=== PATIENT | female | born 1970 | race Caucasian/White ===

== ENCOUNTER 2017-11-03 14:21 | Emergency (ER) | payer OTHER ==
[~2017-11-03] VITALS: Ht 157.5 cm; Wt 69.3 kg
[2017-11-03 15:22] LABS: BASOPHILS # (AUTO) 0.03 x10^3/uL (0-0.1); BASOPHILS % (AUTO) 0 % (0-1); EOSINOPHILS % (AUTO) 2 % (1-7); HCT (SEDRATE) 43.7 % (34.6-47.8); LYMPHOCYTES # (AUTO) 2.29 x10^3/uL (1-3.4); LYMPHOCYTES % (AUTO) 28 % (22-44); MD NO; MEAN CORPUSCULAR HEMOGLOBIN 27.8 pg (27.0-34.8); MEAN CORPUSCULAR HGB CONC 33.4 g/dL (32.4-35.8); MEAN CORPUSCULAR VOLUME 83.1 fL (80-100); MEAN PLATELET VOLUME 8.3 fL (7.4-10.4); MONOCYTES # (AUTO) 0.83 x10^3/uL (0.2-0.8); MONOCYTES % (AUTO) 10 % (2-9); NEUTROPHILS # (AUTO) 4.98 x10^3/uL (1.8-6.8); NEUTROPHILS % (AUTO) 60 % (42-75); PLATELET COUNT 341 x10^3/uL (130-400); RED BLOOD COUNT 5.27 x10^6/uL (3.82-5.3); RED CELL DISTRIBUTION WIDTH 13.9 % (9.6-15.2)
[2017-11-03 15:35] LABS: ALBUMIN 3.8 g/dL (3.4-5.0); ANION GAP 11 mmol/L (5-15); CALCIUM 8.9 mg/dL (8.5-10.1); CHLORIDE 111 mmol/L (98-107)
[2017-11-03 15:38] LABS: MICROSCOPIC NOT IND
[2017-11-03 15:41] LABS: CULTURE INDICATED? NO
[2017-11-03 15:46] LABS: ALANINE AMINOTRANSFERASE 23 U/L (12-78); ALKALINE PHOSPHATASE 79 U/L (45-117); BILIRUBIN,TOTAL 0.4 mg/dL (0.2-1.0); CREATININE 0.92 mg/dL (0.55-1.02); FREE T4 (FREE THYROXINE) 1.61 ng/dL (0.76-1.46); HIGH-SENSITIVITY CRP 0.47 mg/dL (0.02-0.30); TOTAL PROTEIN 7.3 g/dL (6.4-8.2)
[2017-11-03 15:48] LABS: THYROID STIMULATING HORMONE < 0.005 mIU/L (0.358-3.740)
[2017-11-03 16:00] VITALS: BP 120/70
[2017-11-03 16:00] LABS: SEDIMENTATION RATE 12 mm/hr (0-20)
== END 2017-11-03 17:15 | disposition home or self-care (01) ==
LOC: ED 17:09
DX: M79.1 Myalgia (principal); I10 Essential (primary) hypertension; F17.210 Nicotine dependence, cigarettes, uncomplicated; Z90.710 Acquired absence of both cervix and uterus
CPT/HCPCS: 36415; 80053; 81003; 84439; 84443; 85025; 85651; 86141; 99284

== ENCOUNTER 2019-10-18 20:51 | Emergency (ER) | payer OTHER ==
[~2019-10-18] VITALS: Ht 157.5 cm; Wt 51.6 kg
--- NOTE | 2019-10-18 21:23 | NUR ---
THIS IS A 49 YO FEMALE COMING IN FOR "I KNOW I'M GONNA DETOX AND I DON'T WANT TO. THE POLICE SAID TO GO TO THE PLACE BY THE BUS STATION OR COME HERE". PATIENT STATES SHE DRANK APPROX 2 PINTS 4 HOURS AGO, REGULARLY DRINKS 3-4 PINTS A DAY FOR THE PAST 4 MONTHS. HAS GONE TO DETOX FACILITIES IN PAST, LAST TIME WAS 4 YEARS AGO IN [place], STATES SHE WAS SOBER FOR 3 YEARS, THEN STARTED FEELING DEPRESSED 4 MONTHS AGO AND STARTED DRINKING. DENIES SI/HI, "JUST FEELING A LITTLE DEPRESSED". PATIENT ALSO C/O RUQ PAIN RATED 4/10, TENDER TO PALPATION, NO RADIATION. PATIENT IS TEARY, AND WRINGING HANDS. NO TREMORS NOTED, NSR AT 70 BPM ON [employer]. VSS. CALL LIGHT IN REACH, IN ROOM
[2019-10-18 21:37] LABS: MEAN CORPUSCULAR HEMOGLOBIN 29.5 pg (27.0-34.8); MEAN CORPUSCULAR HGB CONC 33.1 g/dL (32.4-35.8); MEAN CORPUSCULAR VOLUME 89.2 fL (80-100); MEAN PLATELET VOLUME 7.1 fL (7.4-10.4); PLATELET COUNT 347 x10^3/uL (130-400); RED BLOOD COUNT 5.62 x10^6/uL (3.82-5.3); RED CELL DISTRIBUTION WIDTH 15.4 % (9.6-15.2)
[2019-10-18 21:49] LABS: ALANINE AMINOTRANSFERASE 19 U/L (12-78); ALBUMIN 4.3 g/dL (3.4-5.0); ANION GAP 6 mmol/L (5-15); CALCIUM 8.5 mg/dL (8.5-10.1); CHLORIDE 113 mmol/L (98-107); CREATININE 0.83 mg/dL (0.55-1.02)
[2019-10-18 21:52] LABS: ALKALINE PHOSPHATASE 71 U/L (45-117); BILIRUBIN,TOTAL 0.4 mg/dL (0.2-1.0); TOTAL PROTEIN 7.7 g/dL (6.4-8.2)
--- NOTE | 2019-10-18 21:58 | NUR ---
PATIENT AMBULATORY WITH STEADY GAIT TO RESTROOM
[2019-10-18] MEDS ORDERED: LORazepam 1MG TABLET ONE (22:03)
--- NOTE | 2019-10-18 22:10 | NUR ---
THIS RN TO ROOM TO GIVE MEDICATION PER EMAR AND PATIENT REQUEST, PATIENT STATES "I CAN'T TAKE ATIVAN, IT MADE ME CRAZY YEARS AGO". PATIENT RAISED VOICE AND YELLED "I NEED TO GET OUT OF HERE. I NEED TO DRINK. I NEED TO LEAVE". PATIENT RIPPED OFF ALL MONITORING DEVICES AND WALKED IN TO HALLWAY AND SAT ON GROUND. THIS RN TO GET PATIENT BACK IN ROOM AT THIS TIME. ER SOFYA AND TO ROOM
--- NOTE | 2019-10-18 22:12 | NUR ---
UA COLLECTED AND SENT
[2019-10-18 22:21] LABS: HCG UR SG 1.016 (1.003-1.030); MICROSCOPIC NOT IND
[2019-10-18 22:21] LABS: MD YES
[2019-10-18 22:25] LABS: CULTURE INDICATED? NO
[2019-10-18 22:26] LABS: ANISOCYTOSIS 1+; LYMPH#(MANUAL) 4.84 x10^3/uL (1-3.4); LYMPHS% (MANUAL) 62 % (22-44); MONOS#(MANUAL) 0.31 x10^3/uL (0.3-2.7); MONOS% (MANUAL) 4 % (2-9); SEG#(MANUAL) 2.65 x10^3/uL (1.8-6.8); SEGS% (MANUAL) 34 % (42-75)
[2019-10-18 22:27] LABS: <PLATELET ESTIMATE> ADEQUATE; <PLT MORPHOLOGY> NORMAL PLT MORPH
[2019-10-18] MEDS ORDERED: ZIPRASIDONE 20 MG INJ IM ONE ×2 (22:29→22:30)
[2019-10-18] MEDS ORDERED: LORazepam 1MG TABLET PO ONE (22:30)
[2019-10-18 22:43] LABS: SALICYLATE LEVEL 6.4 mg/dL (2.8-20.0)
--- NOTE | 2019-10-18 22:45 | NUR ---
PATIENT MEDICATED PER EMAR, TOELRATED WELL.
[2019-10-18 22:47] LABS: AMPHETAMINE SCREEN, URINE Negative (Negative); BARBITURATE SCREEN, URINE Negative (Negative); BENZODIAZEPINE SCREEN, URINE Negative (Negative); CANNABINOID SCREEN, URINE Negative (Negative); COCAINE SCREEN, URINE Negative (Negative); METHADONE SCREEN, URINE Negative (Negative); OPIATE SCREEN, URINE Negative (Negative)
--- NOTE | 2019-10-18 23:00 | NUR ---
PATIENT STATING "I WANT TO GO HOME AND DRINK. I NEED TO GO. THE MEDICATION ISN'T WORKING, IT'S ALREADY BEEN AN HOUR, I NEED TO GET OUT OF HERE". PATIENT EDUCATED THAT IT HAS BEEN 15 MINS SINCE MED WAS GIVEN AND CAN TAKE A LITTLE LONGER. PATIENT IS ANXIOUS, REFUSING MONITORING DEVICES AT THIS TIME, SAYING "THAT MAKE THE ANXIETY WORSE, DON'T PUT IT ON ME". IN ROOM AT THIS TIME
--- NOTE | 2019-10-18 23:19 | NUR ---
PATIENT SLEEPING, RESPIRATIONS EVEN AND UNALBORED. SITTER AT DOOR TO MONITOR
--- NOTE | 2019-10-18 23:57 | NUR ---
PATIENT SLEEPING AT THIS TIME, RESPIRATIONS EVEN AND UNLABORED. SITTER IN EYE SIGHT OF PATIENT TO MAKE SURE PATIENT STAYS IN BED
--- NOTE | 2019-10-19 00:03 | NUR ---
SPO2 MONITOR IN PLACE, 97% ON RA
--- NOTE | 2019-10-19 01:00 | NUR ---
Break RN: Pt sleeping with resp even and unlabored. Pulse ox monitoring in place.
--- NOTE | 2019-10-19 01:33 | NUR ---
report of pt from jesus chao and assuming care of pt at this time. pt asleep in [facility] at this time; nick. sitter outside of pt room for direct observation of pt.
--- NOTE | 2019-10-19 02:58 | NUR ---
pt asleep in [facility] at this time; nick. sitter outside of pt room for direct observation of pt.
--- NOTE | 2019-10-19 03:43 | NUR ---
Report received from MYCHAL Palma. This RN to assume care. Patient sleeping in [facility]. Respirations even and unlabored. Room secured; sitter outside. Belongings in cabinet.
--- NOTE | 2019-10-19 04:36 | NUR ---
Patient sleeping in [place]. Respirations even and unlabored. Room secured; sitter outside. Belongings in cabinet.
[2019-10-19] MEDS ORDERED: TRAZ-175 PO (05:16)
[2019-10-19] MEDS ORDERED: LEVO112T4 PO (05:16)
[2019-10-19] MEDS ORDERED: LISI40TA PO (05:16)
[2019-10-19] MEDS ORDERED: TOPI50TA35 PO (05:16)
[2019-10-19] MEDS ORDERED: LISINOPRIL 20 MG TABLET ONE (05:24)
[2019-10-19] MEDS ORDERED: LISINOPRIL 20 MG TABLET PO ONE (05:30)
--- NOTE | 2019-10-19 05:35 | NUR ---
Patient's called to give patient's home med list. Advised ERP; medicated patient per mar. to bring patient food.
--- NOTE | 2019-10-19 05:51 | NUR ---
Patient resting in gurney with no complaints. Respirations even and unlabored.
--- NOTE | 2019-10-19 06:49 | NUR ---
Report to MYCHAL Polo.
--- NOTE | 2019-10-19 06:51 | NUR ---
Report from MYCHAL Dias.
--- NOTE | 2019-10-19 08:11 | NUR ---
SPOKE WITH BONILLA. PT TO BE SEEN BY [facility]. PT ADANP IN [facility]. AT BEDSIDE.
--- NOTE | 2019-10-19 08:27 | NUR ---
PATIENT AWAKE, LYING IN BED. POC UPDATED AT THIS TIME. CURRENTLY DENIES SI/HI. STATES SHE JUST FEELS TRIED. LOW CIWA SCORE NOTED.
--- NOTE | 2019-10-19 09:56 | NUR ---
Report to MYCHAL Hearn.
--- NOTE | 2019-10-19 10:08 | NUR ---
REPORT FROM MARI HORTA. PT BEING OBSERVED BY SITTER. EQUAL RISE AND FALL OF CHEST OBSERVED.
--- NOTE | 2019-10-19 11:08 | NUR ---
LUDWIG PSYCH RATE SUPERVISOR AT BEDSIDE.
[2019-10-19] MEDS ORDERED: CHLORDIAZEPOXIDE 10 MG CAPSULE PO ONE (12:00)
[2019-10-19] MEDS ORDERED: SERTRALINE 50MG TABLET PO ONE (12:00)
[2019-10-19] MEDS ORDERED: CHLORDIAZEPOXIDE 10 MG CAPSULE ONE (12:05)
[2019-10-19] MEDS ORDERED: SERTRALINE 50MG TABLET ONE (12:07)
[2019-10-19 12:27] VITALS: BP 125/78
== END 2019-10-19 12:29 | disposition home or self-care (01) ==
LOC: ED 22:02
DX: F10.229 Alcohol dependence with intoxication, unspecified (principal); F17.210 Nicotine dependence, cigarettes, uncomplicated; R45.851 Suicidal ideations; R94.31 Abnormal electrocardiogram [ECG] [EKG]; E11.9 Type 2 diabetes mellitus without complications; R11.2 Nausea with vomiting, unspecified; I10 Essential (primary) hypertension; Y90.0 Blood alcohol level of less than 20 mg/100 ml
CPT/HCPCS: 36415; 80053; 80307; 81003; 81025; 83690; 84443; 85025; 93005; 96372; 99285; J3486

== ENCOUNTER 2020-01-26 14:36 | Emergency (ER) | payer SELFPAY ==
[~2020-01-26] VITALS: Ht 157.5 cm; Wt 60.0 kg
[~2020-01-26 14:36] MED LIST: LEVO112T4 PO; LISI40TA PO; TOPI50TA35 PO; TRAZ-175 PO
[2020-01-26 14:52] VITALS: BP 119/89
[2020-01-26] MEDS ORDERED: THIAMINE 100MG TABLET ONE (15:27)
[2020-01-26] MEDS ORDERED: LORazepam 1MG TABLET ONE (15:28)
[2020-01-26] MEDS ORDERED: LORazepam 1MG TABLET PO ONE (15:30)
[2020-01-26] MEDS ORDERED: THIAMINE 100MG TABLET PO ONE (15:30)
[2020-01-26 15:42] LABS: BASOPHILS # (AUTO) 0.02 x10^3/uL (0-0.1); BASOPHILS % (AUTO) 0 % (0-1); EOSINOPHILS # (AUTO) 0.17 x10^3/uL (0-0.4); EOSINOPHILS % (AUTO) 3 % (1-7); LYMPHOCYTES # (AUTO) 2.33 x10^3/uL (1-3.4); LYMPHOCYTES % (AUTO) 43 % (22-44); MD NO; MEAN CORPUSCULAR HEMOGLOBIN 29.9 pg (27.0-34.8); MEAN CORPUSCULAR HGB CONC 32.5 g/dL (32.4-35.8); MEAN CORPUSCULAR VOLUME 91.9 fL (80-100); MONOCYTES # (AUTO) 0.38 x10^3/uL (0.2-0.8); MONOCYTES % (AUTO) 7 % (2-9); NEUTROPHILS # (AUTO) 2.54 x10^3/uL (1.8-6.8); NEUTROPHILS % (AUTO) 47 % (42-75); PLATELET COUNT 224 x10^3/uL (130-400); RED BLOOD COUNT 4.17 x10^6/uL (3.82-5.3); RED CELL DISTRIBUTION WIDTH 15.6 % (9.6-15.2)
[2020-01-26 15:53] LABS: ALANINE AMINOTRANSFERASE 20 U/L (12-78); ALBUMIN 3.7 g/dL (3.4-5.0); ANION GAP 9 mmol/L (5-15); CALCIUM 8.5 mg/dL (8.5-10.1); CHLORIDE 111 mmol/L (98-107); CREATININE 0.89 mg/dL (0.55-1.02)
[2020-01-26 15:57] LABS: ALKALINE PHOSPHATASE 66 U/L (45-117); BILIRUBIN,TOTAL 0.4 mg/dL (0.2-1.0); TOTAL PROTEIN 6.6 g/dL (6.4-8.2)
== END 2020-01-26 16:51 | disposition home or self-care (01) ==
LOC: ED 16:30
DX: F10.10 Alcohol abuse, uncomplicated (principal); R11.2 Nausea with vomiting, unspecified; R19.7 Diarrhea, unspecified; R10.9 Unspecified abdominal pain; R94.31 Abnormal electrocardiogram [ECG] [EKG]; F41.9 Anxiety disorder, unspecified; I10 Essential (primary) hypertension; Z90.710 Acquired absence of both cervix and uterus; Y90.0 Blood alcohol level of less than 20 mg/100 ml
CPT/HCPCS: 36415; 80053; 84703; 85025; 93005; 99284